=== PATIENT | male | born 1960 | race American Indian/Alaskan Native ===

== ENCOUNTER 2022-04-25 00:35 | Inpatient (IN) | payer MEDICAID ==
[2022-04-25] MEDS ORDERED: metroNIDAZOLE/NS 500 MG/100 ML 500 MG/100 ML BAG IV ONE (09:31)
[2022-04-25] MEDS ORDERED: SODIUM CHLORIDE 0.9% 1000 ML 1,000 ML IV ONE (09:31)
[2022-04-25] MEDS ORDERED: diphenhydrAMINE 50 MG/ML VIAL IV ONE (09:33)
[2022-04-25] MEDS ORDERED: ONDANSETRON 4 MG/2 ML INJ IV ONE (09:33)
[2022-04-25] MEDS ORDERED: HYDROmorphone 0.5 MG/0.5 ML INJ IV ONE (09:33)
--- NOTE | 2022-04-25 09:37 | Emergency Department Report ---
<FRANCISCOCRISSY Muñoz - Last Filed: 04/25/22 13:21> ED Abdominal Pain HPI - General Chief Complaint: Abdominal Pain Stated Complaint: ABDOMINAL PAIN/BLOATED Time Seen by Provider: 04/25/22 08:54 - Related Data Allergies Allergy/AdvReac Type Severity Reaction Status Date / Time No Known Allergies Allergy Unverified 04/25/22 02:01 ED Medical Decision Making - Lab Data Result diagrams: 04/25/22 09:15 04/25/22 09:15 ED Disposition Clinical Impression: Acute appendicitis Disposition: ADMITTED INPATIENT Condition: Stable <FANNIERebeccaLORI IBRAHIM - Last Filed: 04/25/22 14:08> ED Abdominal Pain HPI - General Source: EMS Mode of arrival: Stretcher Limitations: No Limitations - History of Present Illness Initial Comments: Mr. Treviño is a 61-year-old male that comes to the ER last night around midnight for complaints of abdominal pain and feeling bloated. Patient arrived in [facility] at 9:00 this morning rocking back and forth in pain. Complains of generalized abdominal pain and feeling of bloating. Patient reports chills. He denies known fever. His last bowel movement was yesterday. He endorses nausea and vomiting. He denies diarrhea. He denies any difficulty urinating. MD Complaint: abdominal pain -: Gradual, days(s) Location: diffuse Severity: severe Severity scale (0 -10): 8 Quality: fullness Consistency: constant Improves With: nothing Worsens With: nothing Associated Symptoms: denies other symptoms, nausea, vomiting, chills. denies: diarrhea, fever, constipation, dysuria, hematemesis, hematochezia, melena, hematuria, anorexia, syncope ED Review of Systems ROS: Stated complaint: ABDOMINAL PAIN/BLOATED Other details as noted in HPI Comment: All other systems reviewed and negative ED Past Medical Hx - Past Medical History Previous Medical History?: Yes Hx Hypertension: Yes Hx GERD: Yes Hx Psychiatric Treatment: Yes (depression, anxiety) Additional medical history: COPD - Surgical History Past Surgical History?: No - Family History Family history: no significant - Social History Smoking Status: Current Every Day Smoker Substance Use Type: None ED Physical Exam - General Limitations: No Limitations General appearance: alert, in no apparent distress - Head Head exam: Present: atraumatic, normocephalic - Eye Eye exam: Present: normal appearance - ENT ENT exam: Present: mucous membranes moist - Neck Neck exam: Present: normal inspection - Respiratory Respiratory exam: Present: normal lung sounds bilaterally. Absent: respiratory distress - Cardiovascular Cardiovascular Exam: Present: regular rate, normal rhythm. Absent: systolic murmur, diastolic murmur, rubs, gallop - GI/Abdominal GI/Abdominal exam: Present: soft, distended, tenderness, guarding, diminished bowel sounds - Rectal Rectal exam: Present: deferred - Extremities Exam Extremities exam: Present: normal inspection - Back Exam Back exam: Present: normal inspection - Neurological Exam Neurological exam: Present: alert, oriented X3 - Psychiatric Psychiatric exam: Present: normal affect, normal mood - Skin Skin exam: Present: warm, dry, intact, normal color. Absent: rash ED Course Vital Signs 04/25/22 04/25/22 01:56 11:24 Temperature 98.2 F 98.1 F Pulse Rate 90 109 H Respiratory 20 18 Rate Blood Pressure 156/92 Blood Pressure 151/90 [Left] O2 Sat by Pulse 96 100 Oximetry - Reevaluation(s) Reevaluation #1: 04/25/22 13:05 Home medications include 1. Medication for GERD patient cannot recall the name. 2. Prozac 3. Trazodone 4. Seroquel ED Medical Decision Making - Lab Data Result diagrams: 04/25/22 09:15 04/25/22 09:15 - Radiology Data Radiology results: report reviewed, image reviewed See report - Medical Decision Making Vital Signs 04/25/22 04/25/22 01:56 11:24 Temperature 98.2 F 98.1 F Pulse Rate 90 109 H Respiratory 20 18 Rate Blood Pressure 156/92 Blood Pressure 151/90 [Left] O2 Sat by Pulse 96 100 Oximetry Lab Results 04/25/22 04/25/22 04/25/22 Range/Units 09:15 09:15 11:29 WBC 26.3 H (4.5-11.0) K/mm3 RBC 4.98 (3.65-5.03) M/mm3 Hgb 15.4 H (11.8-15.2) gm/dl Hct 44.2 (35.5-45.6) % MCV 89 (84-94) fl MCH 31 (28-32) pg MCHC 35 H (32-34) % RDW 14.2 (13.2-15.2) % Plt Count 291 (140-440) K/mm3 Sodium 138 (137-145) mmol/L Potassium 4.2 (3.6-5.0) mmol/L Chloride 102.0 (98-107) mmol/L Carbon Dioxide 17 L (22-30) mmol/L Anion Gap 23 mmol/L BUN 17 (9-20) mg/dL Creatinine 1.0 (0.8-1.3) mg/dL Estimated GFR > 60 ml/min BUN/Creatinine Ratio 17 % Glucose 117 H (75-100) mg/dL Lactic Acid 1.40 (0.7-2.0) mmol/L Calcium 9.9 (8.4-10.2) mg/dL Total Bilirubin 0.70 (0.1-1.2) mg/dL Direct Bilirubin < 0.2 (0-0.2) mg/dL Indirect Bilirubin 0.5 mg/dL AST 21 (5-40) units/L ALT 22 (7-56) units/L Alkaline Phosphatase 69 (35-129) units/L Total Protein 7.8 (6.3-8.2) g/dL Albumin 4.7 (3.9-5) g/dL Albumin/Globulin Ratio 1.5 % Lipase 13 (13-60) units/L Urine Color (Yellow) Urine Turbidity (Clear) Urine pH (5.0-7.0) Ur Specific [place] (1.003-1.030) Urine Protein (Negative) mg/dL Urine Glucose (UA) (Negative) mg/dL Urine Ketones (Negative) mg/dL Urine Blood (Negative) Urine Nitrite (Negative) Urine Bilirubin (Negative) Urine Urobilinogen (<2.0) mg/dL Ur Leukocyte Esterase (Negative) Urine WBC (Auto) (0.0-6.0) /HPF Urine RBC (Auto) (0.0-6.0) /HPF U Epithel Cells (Auto) (0-13.0) /HPF Urine Mucus /HPF / Range/Units Unknown WBC (4.5-11.0) K/mm3 RBC (3.65-5.03) M/mm3 Hgb (11.8-15.2) gm/dl Hct (35.5-45.6) % MCV (84-94) fl MCH (28-32) pg MCHC (32-34) % RDW (13.2-15.2) % Plt Count (140-440) K/mm3 Sodium (137-145) mmol/L Potassium (3.6-5.0) mmol/L Chloride (98-107) mmol/L Carbon Dioxide (22-30) mmol/L Anion Gap mmol/L BUN (9-20) mg/dL Creatinine (0.8-1.3) mg/dL Estimated GFR ml/min BUN/Creatinine Ratio % Glucose (75-100) mg/dL Lactic Acid (0.7-2.0) mmol/L Calcium (8.4-10.2) mg/dL Total Bilirubin (0.1-1.2) mg/dL Direct Bilirubin (0-0.2) mg/dL Indirect Bilirubin mg/dL AST (5-40) units/L ALT (7-56) units/L Alkaline Phosphatase (35-129) units/L Total Protein (6.3-8.2) g/dL Albumin (3.9-5) g/dL Albumin/Globulin Ratio % Lipase (13-60) units/L Urine Color Yellow (Yellow) Urine Turbidity Slightly-cloudy (Clear) Urine pH 5.0 (5.0-7.0) Ur Specific [place] 1.029 (1.003-1.030) Urine Protein 30 mg/dl (Negative) mg/dL Urine Glucose (UA) Neg (Negative) mg/dL Urine Ketones 80 (Negative) mg/dL Urine Blood Neg (Negative) Urine Nitrite Neg (Negative) Urine Bilirubin Neg (Negative) Urine Urobilinogen < 2.0 (<2.0) mg/dL Ur Leukocyte Esterase Neg (Negative) Urine WBC (Auto) 1.0 (0.0-6.0) /HPF Urine RBC (Auto) 1.0 (0.0-6.0) /HPF U Epithel Cells (Auto) 1.0 (0-13.0) /HPF Urine Mucus 3+ /HPF Patient has been given normal saline/volume resuscitation per sepsis protocol. He has received IV Flagyl and cefepime. He has been given Zofran and Dilaudid for pain. Labs noted. UA noted. CT scan noted. Dr. Lopez aware of patient presentation and acute appendicitis. Dr. Dr. Lopez will call surgery and dispo patient. - Differential Diagnosis Acute abdomen rule out appendicitis, cholecystitis, nephrolithiasis, append Critical care attestation.: If time is entered above; I have spent that time in minutes in the direct care of this critically ill patient, excluding procedure time. ED Disposition Is pt being admited?: Yes Does the pt Need Aspirin: No Time of Disposition: 13:05
[2022-04-25 10:20] LABS: Hematocrit 44.2 % (35.5-45.6); Hemoglobin 15.4 gm/dl (11.8-15.2); Mean Corpuscular HGB Conc 35 % (32-34); Mean Corpuscular Volume 89 fl (84-94); Platelet Count 291 K/mm3 (140-440); Red Blood Count 4.98 M/mm3 (3.65-5.03); Red Cell Distribution Width 14.2 % (13.2-15.2)
[2022-04-25 10:32] LABS: Bilirubin,Urine NEG (Negative); Blood,Urine NEG (Negative); Color,Urine Yellow (Yellow); Urobilinogen,Urine < 2.0 mg/dL (<2.0)
[2022-04-25 10:33] LABS: Mucus,Urine 3+ /HPF
[2022-04-25 10:49] LABS: Alanine Aminotransferase 22 units/L (7-56); Albumin 4.7 g/dL (3.9-5); BUN/Creatinine Ratio 17; Blood Urea Nitrogen 17 mg/dL (9-20); Calcium 9.9 mg/dL (8.4-10.2); Hemolysis Index 17
[2022-04-25 10:51] LABS: Bilirubin,Direct < 0.2 mg/dL (0-0.2)
[2022-04-25] MEDS ORDERED: SODIUM CHLORIDE 0.9% 1000 ML IV SOLN IV ONE (11:07)
[2022-04-25] MEDS ORDERED: CEFEPIME/NS 2 GM/100 ML 2 GM/100 ML BAG IV ONE (11:07)
--- NOTE | 2022-04-25 12:19 | XRay Report ---
CHEST 2 VIEWS INDICATION / CLINICAL INFORMATION: pain. COMPARISON: None available. FINDINGS: SUPPORT DEVICES: None. HEART / MEDIASTINUM: No significant abnormality. LUNGS / PLEURA: No significant pulmonary or pleural abnormality. No pneumothorax. ADDITIONAL FINDINGS: No significant additional findings. IMPRESSION: 1. No acute findings. Signer Name: Luisito Biggs Jr, MD Signed: 04/25/2022 12:14 PM Workstation Name: [id number]
--- NOTE | 2022-04-25 12:59 | Cat Scan Report ---
CT ABDOMEN AND PELVIS WITH CONTRAST INDICATION / CLINICAL INFORMATION: abd pain/ bloating. TECHNIQUE: Axial CT images were obtained through the abdomen and pelvis after 100 cc of Omnipaque 300 IV contras t. Sagittal and coronal reformatted images. All CT scans at this location are performed using CT dose reduction for ALARA by means of automated exposure control. COMPARISON: None available. FINDINGS: LOWER CHEST: No significant abnormality. LIVER: No significant abnormality. GALLBLADDER: No significant abnormality. BILE DUCTS: No significant abnormality. PANCREAS: No significant abnormality. SPLEEN: No significant abnormality. ADRENALS: No significant abnormality. RIGHT KIDNEY and URETER: No significant abnormality. LEFT KIDNEY and URETER: No significant abnormality. STOMACH and SMALL BOWEL: No significant abnormality. COLON: No significant abnormality. Mild sigmoid diverticulosis is noted. APPENDIX: The appendix is dilated up to 1.3 cm with wall enhancement and surrounding inflammation. Mu ltiple small appendicoliths are identified near the base of the appendix. The appendix is retrocecal/ retrocolic in position. PERITONEUM: No free fluid. No free air. No fluid collection. LYMPH NODES: No significant adenopathy. AORTA and ARTERIES: No significant abnormality. IVC and VEINS: No significant abnormality. URINARY BLADDER: No significant abnormality. REPRODUCTIVE ORGANS: No significant abnormality. ADDITIONAL FINDINGS: Small umbilical hernia containing fat and small direct left inguinal hernia cont aining fat are identified. SKELETAL SYSTEM: Moderate degenerative disc disease at L4-5 with probable spinal canal narrowing. IMPRESSION: Acute appendicitis as described. No evidence for perforation at this time. Mild sigmoid diverticulosis. Small fat-containing hernias as described. Degenerative findings at L4-5. CRITICAL RESULT: Time of Discovery (DIE WELDER/CDT): 1140 hours Time of Communication (DIE WELDER/CDT): 1143 hours Licensed Practitioner Receiving Report: Dr. Lopez Read-Back Performed: Yes. Signer Name: Luisito Biggs Jr, MD Signed: 04/25/2022 12:55 PM Workstation Name: [id number]
[2022-04-25] MEDS ORDERED: HYDROmorphone 1 MG/1 ML INJ IV ONE (13:06)
--- NOTE | 2022-04-25 13:06 | Emergency Department Report ---
Blank Doc - Documentation Documentation: 61-year-old male with a past medical history of COPD and GERD presents to the hospital right lower quadrant abdominal pain x1 day. Patient was seen by midlevel provider. I received critical CT results showing positive appendicitis and went to the bedside to examine patient. Patient has right lower quadrant abdominal tenderness without rebound or guarding. He was informed of his diagnosis and need for admission and surgery. Additional Dilaudid ordered. Cefepime and Flagyl were ordered by midlevel provider. NPO. I will discuss case with general surgeon and hospitalist Dr Mello informed of admission at 1:22 case was subsequently discussed with general surgeon DR Walker
[2022-04-25] MEDS ORDERED: ACETAMINOPHEN 325 MG TAB PO PRN ×2 (13:28→18:33)
[2022-04-25] MEDS ORDERED: ONDANSETRON 4 MG/2 ML INJ IV PRN ×4 (13:28→19:49)
--- NOTE | 2022-04-25 18:32 | History and Physical Report ---
History of Present Illness Date of examination: 04/25/22 Date of admission: 04/25/22 13:28 Chief complaint: Right lower quadrant pain for 2 days History of present illness: Mr. Treviño is a 61-year-old male that comes to the ER last night around midnight for complaints of abdominal pain and feeling bloated. Patient arrived in [facility] at 9:00 this morning rocking back and forth in pain. Complains of generalized abdominal pain and feeling of bloating. Patient reports chills. He denies known fever. His last bowel movement was yesterday. He endorses nausea and vomiting. He denies diarrhea. He denies any difficulty urinating. MD Complaint: abdominal pain -: Gradual, days(s) Location: diffuse Severity: severe Severity scale (0 -10): 8 Quality: fullness Consistency: constant Improves With: nothing Worsens With: nothing Associated Symptoms: denies other symptoms, nausea, vomiting, chills. denies: d iarrhea, fever, constipation, dysuria, hematemesis, hematochezia, melena, hematuria, anorexia, syncope - Past Medical History --Previous Medical History?: Yes --Hypertension: Yes --GERD: Yes --Psychiatric Treatment: Yes (depression, anxiety) --Additional medical history: COPD - Surgical History --Past Surgical History?: No - Family History --Family history: no significant - Social History --Smoking Status: Current Every Day Smoker --Substance Use Type: None Review of Systems ROS: Stated complaint: ABDOMINAL PAIN/BLOATED Other details as noted in HPI Comment: All other systems reviewed and negative Medications and Allergies Allergies Allergy/AdvReac Type Severity Reaction Status Date / Time No Known Allergies Allergy Unverified 04/25/22 02:01 Active Meds: Active Medications Acetaminophen (Acetaminophen 325 Mg Tab) 650 mg PO Q4H PRN PRN Reason: Pain MILD(1-3)/Fever >100.5/RIDLEY Morphine Sulfate (Morphine 2 Mg/1 Ml Inj) 2 mg IV Q4H PRN PRN Reason: Pain, Moderate (4-6) Ondansetron HCl (Ondansetron 4 Mg/2 Ml Inj) 4 mg IV Q8H PRN PRN Reason: Nausea And Vomiting Sodium Chloride (Sodium Chloride 0.9% 10 Ml Flush Syringe) 10 ml IV BID JADIEL Sodium Chloride (Sodium Chloride 0.9% 10 Ml Flush Syringe) 10 ml IV PRN PRN PRN Reason: LINE FLUSH Exam - Constitutional Vitals: Temp Pulse Resp BP Pulse Ox 98.1 F 109 H 18 151/90 100 04/25/22 11:24 04/25/22 11:24 04/25/22 11:24 04/25/22 11:24 04/25/22 11:24 General appearance: Present: no acute distress, well-nourished - EENT Eyes: Present: PERRL ENT: hearing intact, clear oral mucosa - Neck Neck: Present: supple, normal ROM - Respiratory Respiratory effort: normal Respiratory: bilateral: CTA - Cardiovascular Heart rate: 78 Rhythm: regular Heart Sounds: Present: S1 & S2. Absent: rub, click - Extremities Extremities: pulses symmetrical, No edema Peripheral Pulses: within normal limits - Abdominal General gastrointestinal: Present: soft, non-tender, tender, non-distended, normal bowel sounds Localized gastrointestinal: tender: RLQ, guarding: RLQ, rebound: RLQ Male genitourinary: Present: normal - Integumentary Integumentary: Present: clear, warm, dry - Musculoskeletal Musculoskeletal: gait normal, strength equal bilaterally - Psychiatric Psychiatric: appropriate mood/affect, intact judgment & insight - Neurologic Neurologic: CNII-XII intact, moves all extremities Results - Labs CBC & Chem 7: 04/26/22 06:05 04/26/22 06:05 Labs: Laboratory Last Values WBC 26.3 K/mm3 (4.5-11.0) H 04/25/22 09:15 RBC 4.98 M/mm3 (3.65-5.03) 04/25/22 09:15 Hgb 15.4 gm/dl (11.8-15.2) H 04/25/22 09:15 Hct 44.2 % (35.5-45.6) 04/25/22 09:15 MCV 89 fl (84-94) 04/25/22 09:15 MCH 31 pg (28-32) 04/25/22 09:15 MCHC 35 % (32-34) H 04/25/22 09:15 RDW 14.2 % (13.2-15.2) 04/25/22 09:15 Plt Count 291 K/mm3 (140-440) 04/25/22 09:15 Sodium 138 mmol/L (137-145) 04/25/22 09:15 Potassium 4.2 mmol/L (3.6-5.0) 04/25/22 09:15 Chloride 102.0 mmol/L (98-107) 04/25/22 09:15 Carbon Dioxide 17 mmol/L (22-30) L 04/25/22 09:15 Anion Gap 23 mmol/L 04/25/22 09:15 BUN 17 mg/dL (9-20) 04/25/22 09:15 Creatinine 1.0 mg/dL (0.8-1.3) 04/25/22 09:15 Estimated GFR > 60 ml/min 04/25/22 09:15 BUN/Creatinine Ratio 17 % 04/25/22 09:15 Glucose 117 mg/dL (75-100) H 04/25/22 09:15 Lactic Acid 1.40 mmol/L (0.7-2.0) 04/25/22 11:29 Calcium 9.9 mg/dL (8.4-10.2) 04/25/22 09:15 Total Bilirubin 0.70 mg/dL (0.1-1.2) 04/25/22 09:15 Direct Bilirubin < 0.2 mg/dL (0-0.2) 04/25/22 09:15 Indirect Bilirubin 0.5 mg/dL 04/25/22 09:15 AST 21 units/L (5-40) 04/25/22 09:15 ALT 22 units/L (7-56) 04/25/22 09:15 Alkaline Phosphatase 69 units/L (35-129) 04/25/22 09:15 Total Protein 7.8 g/dL (6.3-8.2) 04/25/22 09:15 Albumin 4.7 g/dL (3.9-5) 04/25/22 09:15 Albumin/Globulin Ratio 1.5 % 04/25/22 09:15 Lipase 13 units/L (13-60) 04/25/22 09:15 Urine Color Yellow (Yellow) 04/25/22 Unknown Urine Turbidity Slightly-cloudy (Clear) 04/25/22 Unknown Urine pH 5.0 (5.0-7.0) 04/25/22 Unknown Ur Specific [place] 1.029 (1.003-1.030) 04/25/22 Unknown Urine Protein 30 mg/dl mg/dL (Negative) 04/25/22 Unknown Urine Glucose (UA) Neg mg/dL (Negative) 04/25/22 Unknown Urine Ketones 80 mg/dL (Negative) 04/25/22 Unknown Urine Blood Neg (Negative) 04/25/22 Unknown Urine Nitrite Neg (Negative) 04/25/22 Unknown Urine Bilirubin Neg (Negative) 04/25/22 Unknown Urine Urobilinogen < 2.0 mg/dL (<2.0) 04/25/22 Unknown Ur Leukocyte Esterase Neg (Negative) 04/25/22 Unknown Urine WBC (Auto) 1.0 /HPF (0.0-6.0) 04/25/22 Unknown Urine RBC (Auto) 1.0 /HPF (0.0-6.0) 04/25/22 Unknown U Epithel Cells (Auto) 1.0 /HPF (0-13.0) 04/25/22 Unknown Urine Mucus 3+ /HPF 04/25/22 Unknown Short CBC 04/25/22 04/26/22 Range/Units 09:15 06:05 WBC 26.3 H 18.8 H (4.5-11.0) K/mm3 Hgb 15.4 H 12.4 D (11.8-15.2) gm/dl Hct 44.2 38.4 (35.5-45.6) % Plt Count 291 217 (140-440) K/mm3 BMP 04/25/22 04/26/22 09:15 06:05 Sodium 138 139 Potassium 4.2 3.8 Chloride 102.0 104.3 Carbon Dioxide 17 L 22 BUN 17 17 Creatinine 1.0 1.1 Glucose 117 H 97 Calcium 9.9 8.5 Liver Function 04/25/22 Range/Units 09:15 Total Bilirubin 0.70 (0.1-1.2) mg/dL Direct Bilirubin < 0.2 (0-0.2) mg/dL AST 21 (5-40) units/L ALT 22 (7-56) units/L Alkaline Phosphatase 69 (35-129) units/L Albumin 4.7 (3.9-5) g/dL Urine 04/25/22 Range/Units Unknown Urine Color Yellow (Yellow) Urine pH 5.0 (5.0-7.0) Ur Specific [place] 1.029 (1.003-1.030) Urine Protein 30 mg/dl (Negative) mg/dL Urine Glucose (UA) Neg (Negative) mg/dL Microbiology: Microbiology 04/25/22 11:29 Peripheral/Venous Blood Culture - Preliminary Culture in Progress 04/25/22 11:29 Peripheral/Venous Blood Culture - Preliminary Culture in Progress - Imaging and Cardiology Imaging and Cardiology: Abdomen/pelvis CT Acute appendicitis as described No evidence of perforation at this time Mild sigmoid diverticulosis Small fat-containing hernias Degenerative findings at L4-5. Chest x-ray no acute findings. Assessment and Plan Advance Directives: Yes (Full code) VTE prophylaxis?: Chemical Plan of care discussed with patient/family: Yes - Patient Problems (1) SIRS (systemic inflammatory response syndrome) Current Visit: Yes Status: Acute Plan to address problem: Patient has elevated white count Acute appendicitis IV antibiotics and IV fluids for now (2) Acute appendicitis Current Visit: Yes Status: Acute Qualifiers: Appendicitis gangrene presence: without gangrene Appendicitis perforation presence: without perforation Plan to address problem: Patient initiated on IV Zosyn Surgery consult appreciated Patient may go to the OR this evening or tomorrow morning (3) Dehydration Current Visit: Yes Status: Acute Plan to address problem: IV fluids (4) DVT prophylaxis Current Visit: Yes Status: Acute Plan to address problem: On anticoagulation and GI prophylaxis (5) Advance care planning Current Visit: Yes Status: Acute Plan to address problem: Disease education conducted, care plan discussed, diagnosis discussed prognosis discussed. Patient acknowledges understanding with care plan. +30 minutes.
--- NOTE | 2022-04-25 18:32 | Consultation ---
History of Present Illness Consult date: 04/25/22 Reason for consult: abdominal pain - History of present illness History of present illness: Mr. Treviño is a 61-year-old male that comes to the ER last night around midnight for complaints of abdominal pain and feeling bloated. Patient arrived in [facility] at 9:00 this morning rocking back and forth in pain. Complains of generalized abdominal pain and feeling of bloating. Patient reports chills. He denies known fever. His last bowel movement was yesterday. He endorses nausea and vomiting. He denies diarrhea. He denies any difficulty urinating. CT scan of the abdomen is positive for acute of appendicitis Medications and Allergies Allergies Allergy/AdvReac Type Severity Reaction Status Date / Time No Known Allergies Allergy Unverified 04/25/22 02:01 Active Meds: Active Medications Acetaminophen (Acetaminophen 325 Mg Tab) 650 mg PO Q4H PRN PRN Reason: Pain MILD(1-3)/Fever >100.5/RIDLEY Morphine Sulfate (Morphine 2 Mg/1 Ml Inj) 2 mg IV Q4H PRN PRN Reason: Pain, Moderate (4-6) Ondansetron HCl (Ondansetron 4 Mg/2 Ml Inj) 4 mg IV Q8H PRN PRN Reason: Nausea And Vomiting Sodium Chloride (Sodium Chloride 0.9% 10 Ml Flush Syringe) 10 ml IV BID JADIEL Sodium Chloride (Sodium Chloride 0.9% 10 Ml Flush Syringe) 10 ml IV PRN PRN PRN Reason: LINE FLUSH Exam Vital Signs Temp Pulse Resp BP Pulse Ox 98.2 F 90 20 156/92 96 04/25/22 01:56 04/25/22 01:56 04/25/22 01:56 04/25/22 01:56 04/25/22 01:56 - General physical appearance Positive: well developed - Eyes Positive: PERRL - Neck Positive: no masses, no bruits, trachea midline - Respiratory Positive: normal expansion - Cardiovascular Rhythm: regular - Extremities Extremities: no ischemia, No edema - Abdomen Abdomen: Present: tender, guarding, rigid Hernia: none - Neurologic Neurologic: alert and oriented to time, place and person, motor strength and sensation are grossly intact, CN II-XII intact Results - Labs 04/25/22 09:15 04/25/22 09:15 Abnormal lab results 04/25/22 04/25/22 Range/Units 09:15 09:15 WBC 26.3 H (4.5-11.0) K/mm3 Hgb 15.4 H (11.8-15.2) gm/dl MCHC 35 H (32-34) % Carbon Dioxide 17 L (22-30) mmol/L Glucose 117 H (75-100) mg/dL Diabetes panel 04/25/22 Range/Units 09:15 Sodium 138 (137-145) mmol/L Potassium 4.2 (3.6-5.0) mmol/L Chloride 102.0 (98-107) mmol/L Carbon Dioxide 17 L (22-30) mmol/L BUN 17 (9-20) mg/dL Creatinine 1.0 (0.8-1.3) mg/dL Glucose 117 H (75-100) mg/dL Calcium 9.9 (8.4-10.2) mg/dL AST 21 (5-40) units/L ALT 22 (7-56) units/L Alkaline Phosphatase 69 (35-129) units/L Total Protein 7.8 (6.3-8.2) g/dL Albumin 4.7 (3.9-5) g/dL Calcium panel 04/25/22 Range/Units 09:15 Calcium 9.9 (8.4-10.2) mg/dL Albumin 4.7 (3.9-5) g/dL Pituitary panel 04/25/22 Range/Units 09:15 Sodium 138 (137-145) mmol/L Potassium 4.2 (3.6-5.0) mmol/L Chloride 102.0 (98-107) mmol/L Carbon Dioxide 17 L (22-30) mmol/L BUN 17 (9-20) mg/dL Creatinine 1.0 (0.8-1.3) mg/dL Glucose 117 H (75-100) mg/dL Calcium 9.9 (8.4-10.2) mg/dL Adrenal panel 04/25/22 Range/Units 09:15 Sodium 138 (137-145) mmol/L Potassium 4.2 (3.6-5.0) mmol/L Chloride 102.0 (98-107) mmol/L Carbon Dioxide 17 L (22-30) mmol/L BUN 17 (9-20) mg/dL Creatinine 1.0 (0.8-1.3) mg/dL Glucose 117 H (75-100) mg/dL Calcium 9.9 (8.4-10.2) mg/dL Total Bilirubin 0.70 (0.1-1.2) mg/dL AST 21 (5-40) units/L ALT 22 (7-56) units/L Alkaline Phosphatase 69 (35-129) units/L Total Protein 7.8 (6.3-8.2) g/dL Albumin 4.7 (3.9-5) g/dL Assessment and Plan 61-year-old male patient with about a days duration of abdominal pain that appears to started periumbilically and then become more prominent in the right hypogastric area. CT scan of the abdomen is consistent with acute cholecys titis. Admitting WBC count is 23,000. Continue n.p.o. IV fluids IV antibiotics plan to do laparoscopic appendectomy possibly this evening.
[2022-04-25] MEDS ORDERED: PROMETHAZINE 25 MG RECT SUPP PR PRN (18:33)
[2022-04-25] MEDS ORDERED: METOCLOPRAMIDE 10 MG/2 ML INJ IV PRN (18:33)
[2022-04-25 18:39] LABS: Band Neutrophils # (Manual) 0.5 K/mm3; Basophils % (Manual) 0 % (0.0-1.8); Eosinophils % (Manual) 0 % (0.0-4.3); Platelet Estimate Consistent w Auto; RBC Morphology Normal; Total Cells Counted 100
[2022-04-25] MEDS ORDERED: LIDOCAINE (1%) 10 MG/1 ML VIAL 20 ML MDV ONE (19:22)
[2022-04-25] MEDS ORDERED: BUPIVACAINE/PF (0.5%) 5 MG/1 ML 30 ML VIAL INFILTRATI ONE ×2 (19:22→21:07)
[2022-04-25] MEDS ORDERED: HYDROmorphone 0.5 MG/0.5 ML INJ IV PRN ×2 (19:49)
--- NOTE | 2022-04-25 19:51 | Anesthesia Day of Surgery ---
Anesthesia Day of Surgery - Day of Surgery Patient Examined: Yes Patient H&P Reviewed: Yes Patient is NPO: Yes
--- NOTE | 2022-04-25 19:53 | Anesthesia Consultation ---
Anesthesia Consult and Med Hx Date of service: 04/25/22 - Airway Anesthetic Teeth Evaluation: Edentulous ROM Head & Neck: Adequate Mental/Hyoid Distance: Adequate Mallampati Class: Class II Intubation Access Assessment: Good - Pre-Operative Health Status ASA Pre-Surgery Classification: ASA3, Emergency Proposed Anesthetic Plan: General - Pulmonary Hx Smoking: Yes Hx Respiratory Symptoms: Yes SOB: Yes COPD: Yes Hx Sleep Apnea: No - Cardiovascular System Hx Hypertension: Yes - Central Nervous System Hx Psychiatric Problems: Yes (Anxiety/Depression) - Gastrointestinal Hx Gastroesophageal Reflux Disease: Yes - Other Systems Hx Obesity: No
[2022-04-25] MEDS ORDERED: LIDOCAINE MPF (2%) 20 MG/1 ML VIAL 5 ML ONE (19:54)
[2022-04-25] MEDS ORDERED: ROCURONIUM 50 MG/5 ML INJ IV ONE ×2 (19:54→21:26)
[2022-04-25] MEDS ORDERED: fentaNYL 100 MCG/2 ML INJ ONE ×2 (19:55→20:58)
[2022-04-25] MEDS ORDERED: propofoL 200 MG/20 ML VIAL IV ONE (19:55)
[2022-04-25] MEDS ORDERED: MIDAZOLAM 2 MG/2 ML INJ ONE (19:55)
[2022-04-25] MEDS ORDERED: SODIUM CHLORIDE 0.9% IRR 1,000 ML BOTTLE IR ONE (21:07)
[2022-04-25] MEDS ORDERED: LIDOCAINE (1%) 10 MG/1 ML VIAL 20 ML MDV INFILTRATI ONE (21:07)
[2022-04-25] MEDS ORDERED: LACTATED RINGERS 1,000 ML ONE ×2 (21:26→21:38)
[2022-04-25] MEDS ORDERED: SODIUM CHLORIDE 0.9% IRRIG SOLN 2000 ML IR ONE (21:28)
[2022-04-25] MEDS ORDERED: SUGAMMADEX SODIUM 200 MG/2 ML VIAL IV ONE (21:31)
--- NOTE | 2022-04-25 21:54 | Operative Report ---
Operative Report Operative Report: Procedure date: 04/25/2022 Preop diagnosis: Acute appendicitis Postop diagnosis: Same Procedure: Laparoscopic appendectomy Surgeon: Dr. Bonner Anesthesia: General endotracheal Estimated blood loss: 50 cc Specimen: Appendix Findings: This patient presents with a acute appendicitis diagnosed on CAT scan. He is taken to the OR and under general endotracheal anesthesia timeouts and consents are obtained. An Sotelo catheter is placed. Abdomen is prepped with ChloraPrep and 3 minutes later draped in a sterile fashion. A 2 mm incision is made in the left upper quadrant and Veress needle was used to gain access peritoneal cavity. Abdomen is insufflated with CO2. 5 George port is placed in the right upper quadrant and in the low midline. A 10 mm port is placed supraumbilically. The appendix is identified in the right lower quadrant and grasped with graspers. The endoscopic ADRIANA stapler is used to separate the appendix from the base of the cecum. Harmonic scalpel was used to divide the mesoappendix. Specimen is then placed in a specimen bag and extracted through the 10 mm port. The fascial defect is then closed with a John Rose system and a 2-0 Vicryl stitch. Skin is then closed with marty.
[2022-04-25] MEDS ORDERED: ENOXAPARIN 30 MG/0.3 ML INJ SUB-Q ONE (21:59)
--- NOTE | 2022-04-25 22:17 | Post Anesthesia Evaluation ---
- Post Anesthesia Evaluation Patient Participated: Yes Airway Patent: Yes Stable Respiratory Function: Yes Nausea/Vomiting: No Temp > 96.8F: Yes Pain Manageable: Yes Adequeate Hydration: Yes Anesthesia Complications: No Block Receding Appropriately: Not Applicable Patient on Ventilator: No
[2022-04-26] MEDS: FAMOTIDINE 20 MG/2 ML INJ IV SCH ×3 (00:09→22:54)
[2022-04-26] MEDS: PIPERACIL/TAZOBACTA 4.5/NS 100 4.5 GM/100 ML VIAL IV SCH ×3 (00:09→16:17)
[2022-04-26] MEDS: MORPHINE 2 MG/1 ML INJ IV PRN ×4 (06:45→20:07)
[2022-04-26 06:46] LABS: Basophils % (Auto) 0.1 % (0.0-1.8); Eosinophils % (Auto) 0.1 % (0.0-4.3); Hematocrit 38.4 % (35.5-45.6); Hemoglobin 12.4 gm/dl (11.8-15.2); Lymphocytes # (Auto) 1.6 K/mm3 (1.2-5.4); Lymphocytes % (Auto) 8.5 % (13.4-35.0); Mean Corpuscular HGB Conc 32 % (32-34); Mean Corpuscular Volume 91 fl (84-94); Monocytes % (Auto) 10.7 % (0.0-7.3); Platelet Count 217 K/mm3 (140-440); Red Blood Count 4.21 M/mm3 (3.65-5.03); Red Cell Distribution Width 14.2 % (13.2-15.2)
[2022-04-26] MEDS: SODIUM CHLORIDE 0.9% 1000 ML 1,000 ML IV SCH ×2 (06:46→20:12)
[2022-04-26 06:57] LABS: BUN/Creatinine Ratio 15; Blood Urea Nitrogen 17 mg/dL (9-20); Calcium 8.5 mg/dL (8.4-10.2); Hemolysis Index 5
--- NOTE | 2022-04-26 08:30 | Progress Note ---
Assessment and Plan 61-year-old male patient with about a days duration of abdominal pain that appears to started periumbilically and then become more prominent in the right hypogastric area. CT scan of the abdomen is consistent with acute cholecystitis. Admitting WBC count is 23,000. Patient status post laparoscopic appendectomy on 04/25/2022. He feels well notes some abdominal wall pain. He is hungry today. His white count is 18,000. We will advance to a soft diet today and continue IV antibiotics repeat CBC in the morning. Subjective Date of service: 04/26/22 Patient Reports: Positive: no new complaints, feels better Narrative: Patient status post laparoscopic appendectomy on 04/25/2022. He feels well notes some abdominal wall pain. He is hungry today. His white count is 18,000. We will advance to a soft diet today and continue IV antibiotics repeat CBC in the morning. Objective Vital Signs - 12hr 04/25/22 04/25/22 04/25/22 21:56 22:01 22:06 Temperature 100.0 F H Pulse Rate 122 H 123 H 116 H Pulse Rate [ Apical] Respiratory 24 21 22 Rate Blood Pressure 142/84 152/89 161/88 O2 Sat by Pulse 100 100 100 Oximetry 04/25/22 04/25/22 04/25/22 22:15 22:30 22:34 Temperature Pulse Rate 109 H 112 H 110 H Pulse Rate [ Apical] Respiratory 24 25 H Rate Blood Pressure 157/83 146/73 146/73 O2 Sat by Pulse 100 98 Oximetry 04/25/22 04/25/22 04/25/22 22:45 22:55 22:58 Temperature 98.6 F Pulse Rate 108 H 104 H Pulse Rate [ 104 H Apical] Respiratory 22 18 18 Rate Blood Pressure 138/80 146/90 O2 Sat by Pulse 97 96 96 Oximetry 04/25/22 04/26/22 23:00 04:27 Temperature 99.0 F Pulse Rate 104 H 95 H Pulse Rate [ Apical] Respiratory 19 18 Rate Blood Pressure 146/90 139/89 O2 Sat by Pulse 97 95 Oximetry - Labs 04/26/22 06:05 04/26/22 06:05 Diabetes panel 04/25/22 04/26/22 Range/Units 09:15 06:05 Sodium 138 139 (137-145) mmol/L Potassium 4.2 3.8 (3.6-5.0) mmol/L Chloride 102.0 104.3 (98-107) mmol/L Carbon Dioxide 17 L 22 (22-30) mmol/L BUN 17 17 (9-20) mg/dL Creatinine 1.0 1.1 (0.8-1.3) mg/dL Glucose 117 H 97 (75-100) mg/dL Calcium 9.9 8.5 (8.4-10.2) mg/dL AST 21 (5-40) units/L ALT 22 (7-56) units/L Alkaline Phosphatase 69 (35-129) units/L Total Protein 7.8 (6.3-8.2) g/dL Albumin 4.7 (3.9-5) g/dL Calcium panel 04/25/22 04/26/22 Range/Units 09:15 06:05 Calcium 9.9 8.5 (8.4-10.2) mg/dL Albumin 4.7 (3.9-5) g/dL Pituitary panel 04/25/22 04/26/22 Range/Units 09:15 06:05 Sodium 138 139 (137-145) mmol/L Potassium 4.2 3.8 (3.6-5.0) mmol/L Chloride 102.0 104.3 (98-107) mmol/L Carbon Dioxide 17 L 22 (22-30) mmol/L BUN 17 17 (9-20) mg/dL Creatinine 1.0 1.1 (0.8-1.3) mg/dL Glucose 117 H 97 (75-100) mg/dL Calcium 9.9 8.5 (8.4-10.2) mg/dL Adrenal panel 04/25/22 04/26/22 Range/Units 09:15 06:05 Sodium 138 139 (137-145) mmol/L Potassium 4.2 3.8 (3.6-5.0) mmol/L Chloride 102.0 104.3 (98-107) mmol/L Carbon Dioxide 17 L 22 (22-30) mmol/L BUN 17 17 (9-20) mg/dL Creatinine 1.0 1.1 (0.8-1.3) mg/dL Glucose 117 H 97 (75-100) mg/dL Calcium 9.9 8.5 (8.4-10.2) mg/dL Total Bilirubin 0.70 (0.1-1.2) mg/dL AST 21 (5-40) units/L ALT 22 (7-56) units/L Alkaline Phosphatase 69 (35-129) units/L Total Protein 7.8 (6.3-8.2) g/dL Albumin 4.7 (3.9-5) g/dL
--- NOTE | 2022-04-26 20:38 | Progress Note ---
Assessment and Plan Assessment and plan: --SIRS (systemic inflammatory response syndrome) Patient has elevated white count Acute appendicitis IV antibiotics and IV fluids for now --Acute appendicitis S/p lap appendectomy Patient tolerated the procedure well Initially on clear liquids Now advance the diet to GI soft diet Continue postop care Surgery following Patient initiated on IV Zosyn Surgery consult appreciated Patient may go to the OR this evening or tomorrow morning --Leukocytosis; Secondary to acute appendicitis Trending down -Dehydration IV fluids, closely monitor --DVT prophylaxis On anticoagulation and GI prophylaxis -- Advance care planning Disease education conducted, care plan discussed, diagnosis discussed prognosis discussed. Patient acknowledges understanding with care plan. +30 minutes. Discussed with surgeon Dr. Robison, continue current management Possible discharge home tomorrow if stable and tolerates diet Plan of care reviewed with the patient and his nurse History Interval history: Acute appendicitis; Status post laparoscopic appendectomy Patient tolerated the procedure well Surgery following, advance the diet to GI soft diet today .Patient complains of some pain at the surgical site Denies nausea vomiting Vital signs noted Hospitalist Physical - Constitutional Vitals: Temp Pulse Resp BP Pulse Ox 98.1 F 89 16 140/94 97 04/26/22 16:05 04/26/22 16:05 04/26/22 16:05 04/26/22 16:05 04/26/22 16:05 General appearance: Present: no acute distress, well-nourished - EENT Eyes: Present: PERRL, EOM intact - Neck Neck: Present: supple, normal ROM - Respiratory Respiratory effort: normal Respiratory: bilateral: diminished, wheezing, negative: rales, rhonchi - Cardiovascular Rhythm: regular Heart Sounds: Present: S1 & S2 - Extremities Extremities: no ischemia, No edema Peripheral Pulses: within normal limits - Abdominal General gastrointestinal: soft, tender (No guarding no rigidity), non-distended, normal bowel sounds - Integumentary Integumentary: Present: clear, warm - Psychiatric Psychiatric: appropriate mood/affect, other - Neurologic Neurologic: moves all extremities Results - Labs CBC & Chem 7: 04/26/22 06:05 04/26/22 06:05 Labs: Laboratory Last Values WBC 18.8 K/mm3 (4.5-11.0) H 04/26/22 06:05 RBC 4.21 M/mm3 (3.65-5.03) 04/26/22 06:05 Hgb 12.4 gm/dl (11.8-15.2) D 04/26/22 06:05 Hct 38.4 % (35.5-45.6) 04/26/22 06:05 MCV 91 fl (84-94) 04/26/22 06:05 MCH 29 pg (28-32) 04/26/22 06:05 MCHC 32 % (32-34) 04/26/22 06:05 RDW 14.2 % (13.2-15.2) 04/26/22 06:05 Plt Count 217 K/mm3 (140-440) 04/26/22 06:05 Lymph % (Auto) 8.5 % (13.4-35.0) L 04/26/22 06:05 [place] % (Auto) 10.7 % (0.0-7.3) H 04/26/22 06:05 Eos % (Auto) 0.1 % (0.0-4.3) 04/26/22 06:05 Baso % (Auto) 0.1 % (0.0-1.8) 04/26/22 06:05 Lymph # (Auto) 1.6 K/mm3 (1.2-5.4) 04/26/22 06:05 [place] # (Auto) 2.0 K/mm3 (0.0-0.8) H 04/26/22 06:05 Eos # (Auto) 0.0 K/mm3 (0.0-0.4) 04/26/22 06:05 Baso # (Auto) 0.0 K/mm3 (0.0-0.1) 04/26/22 06:05 Add Manual Diff Complete 04/25/22 09:15 Total Counted 100 04/25/22 09:15 Seg Neutrophils % 80.6 % (40.0-70.0) H 04/26/22 06:05 Seg Neuts % (Manual) 85.0 % (40.0-70.0) H 04/25/22 09:15 Band Neutrophils % 2.0 % 04/25/22 09:15 Lymphocytes % (Manual) 4.0 % (13.4-35.0) L 04/25/22 09:15 Reactive Lymphs % (Man) 0 % 04/25/22 09:15 Monocytes % (Manual) 9.0 % (0.0-7.3) H 04/25/22 09:15 Eosinophils % (Manual) 0 % (0.0-4.3) 04/25/22 09:15 Basophils % (Manual) 0 % (0.0-1.8) 04/25/22 09:15 Metamyelocytes % 0 % 04/25/22 09:15 Myelocytes % 0 % 04/25/22 09:15 Promyelocytes % 0 % 04/25/22 09:15 Blast Cells % 0 % 04/25/22 09:15 Nucleated RBC % Not Reportable 04/25/22 09:15 Seg Neutrophils # 15.1 K/mm3 (1.8-7.7) H 04/26/22 06:05 Seg Neutrophils # Man 22.4 K/mm3 (1.8-7.7) H 04/25/22 09:15 Band Neutrophils # 0.5 K/mm3 04/25/22 09:15 Lymphocytes # (Manual) 1.1 K/mm3 (1.2-5.4) L 04/25/22 09:15 Abs React Lymphs (Man) 0.0 K/mm3 04/25/22 09:15 Monocytes # (Manual) 2.4 K/mm3 (0.0-0.8) H 04/25/22 09:15 Eosinophils # (Manual) 0.0 K/mm3 (0.0-0.4) 04/25/22 09:15 Basophils # (Manual) 0.0 K/mm3 (0.0-0.1) 04/25/22 09:15 Metamyelocytes # 0.0 K/mm3 04/25/22 09:15 Myelocytes # 0.0 K/mm3 04/25/22 09:15 Promyelocytes # 0.0 K/mm3 04/25/22 09:15 Blast Cells # 0.0 K/mm3 04/25/22 09:15 WBC Morphology Not Reportable 04/25/22 09:15 Hypersegmented Neuts Not Reportable 04/25/22 09:15 Hyposegmented Neuts Not Reportable 04/25/22 09:15 Hypogranular Neuts Not Reportable 04/25/22 09:15 Smudge Cells Not Reportable 04/25/22 09:15 Toxic Granulation Not Reportable 04/25/22 09:15 Toxic Vacuolation Not Reportable 04/25/22 09:15 Dohle Bodies Not Reportable 04/25/22 09:15 Pelger-Huet Anomaly Not Reportable 04/25/22 09:15 Jose Luis Rods Not Reportable 04/25/22 09:15 Platelet Estimate Consistent w auto 04/25/22 09:15 Clumped Platelets Not Reportable 04/25/22 09:15 Plt Clumps, EDTA Not Reportable 04/25/22 09:15 Large Platelets Not Reportable 04/25/22 09:15 Giant Platelets Not Reportable 04/25/22 09:15 Platelet Satelliting Not Reportable 04/25/22 09:15 Plt Morphology Comment Not Reportable 04/25/22 09:15 RBC Morphology Normal 04/25/22 09:15 Dimorphic RBCs Not Reportable 04/25/22 09:15 Polychromasia Not Reportable 04/25/22 09:15 Hypochromasia Not Reportable 04/25/22 09:15 Poikilocytosis Not Reportable 04/25/22 09:15 Anisocytosis Not Reportable 04/25/22 09:15 Microcytosis Not Reportable 04/25/22 09:15 Macrocytosis Not Reportable 04/25/22 09:15 Spherocytes Not Reportable 04/25/22 09:15 Pappenheimer Bodies Not Reportable 04/25/22 09:15 Sickle Cells Not Reportable 04/25/22 09:15 Target Cells Not Reportable 04/25/22 09:15 Tear Drop Cells Not Reportable 04/25/22 09:15 Ovalocytes Not Reportable 04/25/22 09:15 Helmet Cells Not Reportable 04/25/22 09:15 Harris-Shonto Bodies Not Reportable 04/25/22 09:15 [place] Rings Not Reportable 04/25/22 09:15 Elizabeth Cells Not Reportable 04/25/22 09:15 Bite Cells Not Reportable 04/25/22 09:15 Crenated Cell Not Reportable 04/25/22 09:15 Elliptocytes Not Reportable 04/25/22 09:15 Acanthocytes (Spur) Not Reportable 04/25/22 09:15 Rouleaux Not Reportable 04/25/22 09:15 Hemoglobin C Crystals Not Reportable 04/25/22 09:15 Schistocytes Not Reportable 04/25/22 09:15 Malaria parasites Not Reportable 04/25/22 09:15 Demarco Bodies Not Reportable 04/25/22 09:15 Hem Pathologist Commnt No 04/25/22 09:15 Sodium 139 mmol/L (137-145) 04/26/22 06:05 Potassium 3.8 mmol/L (3.6-5.0) 04/26/22 06:05 Chloride 104.3 mmol/L (98-107) 04/26/22 06:05 Carbon Dioxide 22 mmol/L (22-30) 04/26/22 06:05 Anion Gap 17 mmol/L 04/26/22 06:05 BUN 17 mg/dL (9-20) 04/26/22 06:05 Creatinine 1.1 mg/dL (0.8-1.3) 04/26/22 06:05 Estimated GFR > 60 ml/min 04/26/22 06:05 BUN/Creatinine Ratio 15 % 04/26/22 06:05 Glucose 97 mg/dL (75-100) 04/26/22 06:05 Lactic Acid 1.40 mmol/L (0.7-2.0) 04/25/22 11:29 Calcium 8.5 mg/dL (8.4-10.2) 04/26/22 06:05 Total Bilirubin 0.70 mg/dL (0.1-1.2) 04/25/22 09:15 Direct Bilirubin < 0.2 mg/dL (0-0.2) 04/25/22 09:15 Indirect Bilirubin 0.5 mg/dL 04/25/22 09:15 AST 21 units/L (5-40) 04/25/22 09:15 ALT 22 units/L (7-56) 04/25/22 09:15 Alkaline Phosphatase 69 units/L (35-129) 04/25/22 09:15 Total Protein 7.8 g/dL (6.3-8.2) 04/25/22 09:15 Albumin 4.7 g/dL (3.9-5) 04/25/22 09:15 Albumin/Globulin Ratio 1.5 % 04/25/22 09:15 Lipase 13 units/L (13-60) 04/25/22 09:15 Urine Color Yellow (Yellow) 04/25/22 Unknown Urine Turbidity Slightly-cloudy (Clear) 04/25/22 Unknown Urine pH 5.0 (5.0-7.0) 04/25/22 Unknown Ur Specific [place] 1.029 (1.003-1.030) 04/25/22 Unknown Urine Protein 30 mg/dl mg/dL (Negative) 04/25/22 Unknown Urine Glucose (UA) Neg mg/dL (Negative) 04/25/22 Unknown Urine Ketones 80 mg/dL (Negative) 04/25/22 Unknown Urine Blood Neg (Negative) 04/25/22 Unknown Urine Nitrite Neg (Negative) 04/25/22 Unknown Urine Bilirubin Neg (Negative) 04/25/22 Unknown Urine Urobilinogen < 2.0 mg/dL (<2.0) 04/25/22 Unknown Ur Leukocyte Esterase Neg (Negative) 04/25/22 Unknown Urine WBC (Auto) 1.0 /HPF (0.0-6.0) 04/25/22 Unknown Urine RBC (Auto) 1.0 /HPF (0.0-6.0) 04/25/22 Unknown U Epithel Cells (Auto) 1.0 /HPF (0-13.0) 04/25/22 Unknown Urine Mucus 3+ /HPF 04/25/22 Unknown Microbiology: Microbiology 04/25/22 11:29 Peripheral/Venous Blood Culture - Preliminary NO GROWTH AFTER 24 HOURS 04/25/22 11:29 Peripheral/Venous Blood Culture - Preliminary NO GROWTH AFTER 24 HOURS Sotelo/IV: Voiding Method Toilet Active Medications - Current Medications Current Medications: Generic Name Dose Route Start Last Admin Trade Name Otisq PRN Reason Stop Dose Admin Acetaminophen 650 mg 04/25/22 18:33 Acetaminophen 325 Mg Tab PO Q4H PRN Pain MILD(1-3)/Fever >100.5/RIDLEY Famotidine 20 mg 04/25/22 22:00 04/26/22 09:32 Famotidine 20 Mg/2 Ml Inj IV 20 mg BID JADIEL Administration Piperacillin Sod/Tazobactam Sod 4.5 gm in 100 mls @ 200 mls/hr 04/25/22 20:00 04/26/22 16:17 Zosyn/Ns 4.5gm/100ml IV 200 mls/hr Q8H JADIEL Administration Protocol Sodium Chloride 1,000 mls @ 75 mls/hr 04/25/22 18:45 04/26/22 20:12 Nacl 0.9% 1000 Ml IV 75 mls/hr DIRECT JADIEL Administration Metoclopramide HCl 10 mg 04/25/22 18:33 Metoclopramide 10 Mg/2 Ml Inj IV Q6H PRN Nausea And Vomiting Morphine Sulfate 2 mg 04/25/22 13:28 04/26/22 20:07 Morphine 2 Mg/1 Ml Inj IV 2 mg Q4H PRN Administration Pain, Moderate (4-6) Ondansetron HCl 4 mg 04/25/22 18:36 Ondansetron 4 Mg/2 Ml Inj IV Q3H PRN Nausea And Vomiting Promethazine HCl 25 mg 04/25/22 18:33 Promethazine 25 Mg Rect Supp NV Q6H PRN N/V IF NPO AND NO IV ACCESS Sodium Chloride 10 ml 04/25/22 22:00 04/26/22 09:31 Sodium Chloride 0.9% 10 Ml Flush Syringe IV 10 ml BID JADIEL Administration Sodium Chloride 10 ml 04/25/22 18:33 Sodium Chloride 0.9% 10 Ml Flush Syringe IV PRN PRN LINE FLUSH
[2022-04-27] MEDS: MORPHINE 2 MG/1 ML INJ IV PRN ×3 (00:08→08:22)
[2022-04-27] MEDS: PIPERACIL/TAZOBACTA 4.5/NS 100 4.5 GM/100 ML VIAL IV SCH ×4 (00:12→23:50)
[2022-04-27 06:32] LABS: Basophils % (Auto) 0.2 % (0.0-1.8); Eosinophils # (Auto) 0.2 K/mm3 (0.0-0.4); Eosinophils % (Auto) 1.5 % (0.0-4.3); Hematocrit 37.7 % (35.5-45.6); Hemoglobin 12.4 gm/dl (11.8-15.2); Lymphocytes # (Auto) 1.3 K/mm3 (1.2-5.4); Lymphocytes % (Auto) 11.1 % (13.4-35.0); Mean Corpuscular HGB Conc 33 % (32-34); Mean Corpuscular Volume 92 fl (84-94); Monocytes # (Auto) 1.5 K/mm3 (0.0-0.8); Monocytes % (Auto) 13.2 % (0.0-7.3); Platelet Count 190 K/mm3 (140-440); Red Blood Count 4.12 M/mm3 (3.65-5.03); Red Cell Distribution Width 14.3 % (13.2-15.2)
--- NOTE | 2022-04-27 07:51 | Progress Note ---
Assessment and Plan 61-year-old male patient with about a days duration of abdominal pain that appears to started periumbilically and then become more prominent in the right hypogastric area. CT scan of the abdomen is consistent with acute cholecystitis. Admitting WBC count is 23,000. Postop day #2 status post appendectomy. White count now decreased to 11,600. Tolerating soft diet. Okay to discharge patient today. Subjective Date of service: 04/27/22 Patient Reports: Positive: no new complaints, feels better Narrative: Postop day #2 status post appendectomy. White count now decreased to 11,600. Tolerating soft diet. Okay to discharge patient today. Objective Vital Signs - 12hr 04/26/22 04/26/22 04/27/22 21:53 22:00 04:03 Temperature 99.0 F 97.7 F Pulse Rate 92 H 97 H Respiratory 20 17 18 Rate Blood Pressure 146/86 167/106 O2 Sat by Pulse 98 97 99 Oximetry - Labs 04/27/22 05:39 04/26/22 06:05
--- NOTE | 2022-04-27 09:33 | Discharge Summary ---
Providers - Providers Date of Admission: 04/25/22 13:28 Date of discharge: 04/27/22 Attending physician: MCKINLEY PAREKH 04/25/22 13:22 Consult to Physician [CONS] Urgent Comment: Consulting Provider: MEI CROSS Physician Instructions: Reason For Exam: acute appendicitis Primary care physician: HARRIET MICHAEL Hospitalization Condition: Stable Pertinent studies: CT abdomen; acute appendicitis, no evidence of perforation at this time, mild sigmoid diverticulosis, small fat-containing hernias as described, degenerative changes at L4-L5 Procedures: Status post lap appendectomy Hospital course: --Sepsis secondary to acute appendicitis/present on admission Patient has elevated white count, tachycardia And acute appendicitis s/p lap appendectomy --Acute appendicitis S/p lap appendectomy Patient tolerated the procedure well Initially on clear liquids Now advance the diet to GI soft diet Continue postop care, Surgery following Patient initiated on IV Zosyn Surgery consult appreciated Patient may go to the OR this evening or tomorrow morning --Leukocytosis; Secondary to acute appendicitis Trending down --Dehydration IV fluids, closely monitor --Mild hypotension; --Obesity; BMI 31.3 Advised diet modification exercise as tolerated and weight reduction when you are stable --DVT prophylaxis On anticoagulation and GI prophylaxis Patient is stable at discharge Disposition: 01 HOME / SELF CARE / HOMELESS Final Discharge Diagnosis (Prints w/discharge instructions): Sepsis secondary to acute appendicitis. Acute appendicitis s/p lap appendectomy. Leukocytosis improved. Dehydration resolved. Mild hypertension. Obesity BMI 31.3 Time spent for discharge: 35 Core Measure Documentation - Palliative Care Palliative Care/ Comfort Measures: Not Applicable - Core Measures Any of the following diagnoses?: none Exam - Constitutional Vitals: Temp Pulse Resp BP Pulse Ox 97.7 F 97 H 18 167/106 96 04/27/22 04:03 04/27/22 04:03 04/27/22 04:03 04/27/22 04:03 04/27/22 08:52 General appearance: Present: no acute distress, well-nourished - EENT Eyes: Present: PERRL, EOM intact - Neck Neck: Present: supple, normal ROM - Respiratory Respiratory effort: normal Respiratory: bilateral: diminished, negative: rales, rhonchi, wheezing - Cardiovascular Rhythm: regular Heart Sounds: Present: S1 & S2 - Extremities Extremities: no ischemia, No edema - Abdominal General gastrointestinal: Present: soft, non-tender, non-distended, normal bowel sounds - Integumentary Integumentary: Present: clear, warm - Musculoskeletal Musculoskeletal: strength equal bilaterally - Psychiatric Psychiatric: appropriate mood/affect, cooperative - Neurologic Neurologic: CNII-XII intact, moves all extremities Plan Activity: no restrictions Diet: other (Mechanical soft diet, advance as tolerated) Additional Instructions: Follow-up primary care physician in [address] Ha Neil in 1 week [video tele conference visit] Follow up with: HARRIET MICHAEL MD [Primary Care Provider] - 3-5 Days MEI CROSS MD [Staff Physician] - 7 Days Prescriptions: hydrALAZINE [Apresoline TAB] 10 mg PO BID #60 Famotidine [Pepcid] 20 mg PO BID #20 tablet oxyCODONE /ACETAMINOPHEN [Percocet 5/325] 1 tab PO Q6HR PRN #12 tablet PRN Reason: Pain
[2022-04-27] MEDS: FAMOTIDINE 20 MG/2 ML INJ IV SCH ×2 (09:49→23:26)
[2022-04-27] MEDS: oxyCODONE /ACETAMINOPHEN 5-325MG TAB PO PRN ×3 (12:26→23:49)
[2022-04-27] MEDS: SODIUM CHLORIDE 0.9% 1000 ML 1,000 ML IV SCH (17:58)
--- NOTE | 2022-04-27 19:13 | Progress Note ---
Assessment and Plan Assessment and plan: --SIRS (systemic inflammatory response syndrome) Patient has elevated white count Acute appendicitis IV antibiotics and IV fluids for now --Acute appendicitis S/p lap appendectomy Patient tolerated the procedure well Initially on clear liquids Now advance the diet to GI soft diet Continue postop care Surgery following Patient initiated on IV Zosyn Surgery consult appreciated Patient may go to the OR this evening or tomorrow morning --Leukocytosis; Secondary to acute appendicitis Trending down -Dehydration IV fluids, closely monitor --DVT prophylaxis On anticoagulation and GI prophylaxis -- Advance care planning Disease education conducted, care plan discussed, diagnosis discussed prognosis discussed. Patient acknowledges understanding with care plan. +30 minutes. Discussed with surgeon Dr. Robison, continue current management Possible discharge home tomorrow if stable and tolerates diet Plan of care reviewed with the patient and his nurse 04/27; patient is tolerating mechanical soft diet However has some abdominal pain seeking pain medications Surgeon recommended to observe overnight Possible discharge tomorrow morning if stable History Interval history: Seen and examined the patient at the bedside Patient's chart and medications reviewed Patient feels slightly better Surgeon cleared for discharge and follow-up with him in 1 week However later the surgeon decided to give the patient 1 more night as he was having some pain And asking for more pain medications Vital signs noted Hospitalist Physical - Constitutional Vitals: Temp Pulse Resp BP Pulse Ox 97.7 F 97 H 18 167/106 96 04/27/22 04:03 04/27/22 04:03 04/27/22 04:03 04/27/22 04:03 04/27/22 08:52 General appearance: Present: no acute distress, well-nourished - EENT Eyes: Present: PERRL, EOM intact - Neck Neck: Present: supple, normal ROM - Respiratory Respiratory effort: normal Respiratory: bilateral: diminished, negative: rales, rhonchi, wheezing - Cardiovascular Rhythm: regular Heart Sounds: Present: S1 & S2 - Extremities Extremities: no ischemia, No edema - Abdominal General gastrointestinal: soft, non-tender, non-distended, normal bowel sounds - Integumentary Integumentary: Present: clear, warm - Psychiatric Psychiatric: appropriate mood/affect, cooperative - Neurologic Neurologic: moves all extremities Results - Labs CBC & Chem 7: 04/27/22 05:39 04/26/22 06:05 Labs: Laboratory Last Values WBC 11.6 K/mm3 (4.5-11.0) H 04/27/22 05:39 RBC 4.12 M/mm3 (3.65-5.03) 04/27/22 05:39 Hgb 12.4 gm/dl (11.8-15.2) 04/27/22 05:39 Hct 37.7 % (35.5-45.6) 04/27/22 05:39 MCV 92 fl (84-94) 04/27/22 05:39 MCH 30 pg (28-32) 04/27/22 05:39 MCHC 33 % (32-34) 04/27/22 05:39 RDW 14.3 % (13.2-15.2) 04/27/22 05:39 Plt Count 190 K/mm3 (140-440) 04/27/22 05:39 Lymph % (Auto) 11.1 % (13.4-35.0) L 04/27/22 05:39 [place] % (Auto) 13.2 % (0.0-7.3) H 04/27/22 05:39 Eos % (Auto) 1.5 % (0.0-4.3) 04/27/22 05:39 Baso % (Auto) 0.2 % (0.0-1.8) 04/27/22 05:39 Lymph # (Auto) 1.3 K/mm3 (1.2-5.4) 04/27/22 05:39 [place] # (Auto) 1.5 K/mm3 (0.0-0.8) H 04/27/22 05:39 Eos # (Auto) 0.2 K/mm3 (0.0-0.4) 04/27/22 05:39 Baso # (Auto) 0.0 K/mm3 (0.0-0.1) 04/27/22 05:39 Add Manual Diff Complete 04/25/22 09:15 Total Counted 100 04/25/22 09:15 Seg Neutrophils % 74.0 % (40.0-70.0) H 04/27/22 05:39 Seg Neuts % (Manual) 85.0 % (40.0-70.0) H 04/25/22 09:15 Band Neutrophils % 2.0 % 04/25/22 09:15 Lymphocytes % (Manual) 4.0 % (13.4-35.0) L 04/25/22 09:15 Reactive Lymphs % (Man) 0 % 04/25/22 09:15 Monocytes % (Manual) 9.0 % (0.0-7.3) H 04/25/22 09:15 Eosinophils % (Manual) 0 % (0.0-4.3) 04/25/22 09:15 Basophils % (Manual) 0 % (0.0-1.8) 04/25/22 09:15 Metamyelocytes % 0 % 04/25/22 09:15 Myelocytes % 0 % 04/25/22 09:15 Promyelocytes % 0 % 04/25/22 09:15 Blast Cells % 0 % 04/25/22 09:15 Nucleated RBC % Not Reportable 04/25/22 09:15 Seg Neutrophils # 8.6 K/mm3 (1.8-7.7) H 04/27/22 05:39 Seg Neutrophils # Man 22.4 K/mm3 (1.8-7.7) H 04/25/22 09:15 Band Neutrophils # 0.5 K/mm3 04/25/22 09:15 Lymphocytes # (Manual) 1.1 K/mm3 (1.2-5.4) L 04/25/22 09:15 Abs React Lymphs (Man) 0.0 K/mm3 04/25/22 09:15 Monocytes # (Manual) 2.4 K/mm3 (0.0-0.8) H 04/25/22 09:15 Eosinophils # (Manual) 0.0 K/mm3 (0.0-0.4) 04/25/22 09:15 Basophils # (Manual) 0.0 K/mm3 (0.0-0.1) 04/25/22 09:15 Metamyelocytes # 0.0 K/mm3 04/25/22 09:15 Myelocytes # 0.0 K/mm3 04/25/22 09:15 Promyelocytes # 0.0 K/mm3 04/25/22 09:15 Blast Cells # 0.0 K/mm3 04/25/22 09:15 WBC Morphology Not Reportable 04/25/22 09:15 Hypersegmented Neuts Not Reportable 04/25/22 09:15 Hyposegmented Neuts Not Reportable 04/25/22 09:15 Hypogranular Neuts Not Reportable 04/25/22 09:15 Smudge Cells Not Reportable 04/25/22 09:15 Toxic Granulation Not Reportable 04/25/22 09:15 Toxic Vacuolation Not Reportable 04/25/22 09:15 Dohle Bodies Not Reportable 04/25/22 09:15 Pelger-Huet Anomaly Not Reportable 04/25/22 09:15 Jose Luis Rods Not Reportable 04/25/22 09:15 Platelet Estimate Consistent w auto 04/25/22 09:15 Clumped Platelets Not Reportable 04/25/22 09:15 Plt Clumps, EDTA Not Reportable 04/25/22 09:15 Large Platelets Not Reportable 04/25/22 09:15 Giant Platelets Not Reportable 04/25/22 09:15 Platelet Satelliting Not Reportable 04/25/22 09:15 Plt Morphology Comment Not Reportable 04/25/22 09:15 RBC Morphology Normal 04/25/22 09:15 Dimorphic RBCs Not Reportable 04/25/22 09:15 Polychromasia Not Reportable 04/25/22 09:15 Hypochromasia Not Reportable 04/25/22 09:15 Poikilocytosis Not Reportable 04/25/22 09:15 Anisocytosis Not Reportable 04/25/22 09:15 Microcytosis Not Reportable 04/25/22 09:15 Macrocytosis Not Reportable 04/25/22 09:15 Spherocytes Not Reportable 04/25/22 09:15 Pappenheimer Bodies Not Reportable 04/25/22 09:15 Sickle Cells Not Reportable 04/25/22 09:15 Target Cells Not Reportable 04/25/22 09:15 Tear Drop Cells Not Reportable 04/25/22 09:15 Ovalocytes Not Reportable 04/25/22 09:15 Helmet Cells Not Reportable 04/25/22 09:15 Harris-Acme Bodies Not Reportable 04/25/22 09:15 [place] Rings Not Reportable 04/25/22 09:15 Birney Cells Not Reportable 04/25/22 09:15 Bite Cells Not Reportable 04/25/22 09:15 Crenated Cell Not Reportable 04/25/22 09:15 Elliptocytes Not Reportable 04/25/22 09:15 Acanthocytes (Spur) Not Reportable 04/25/22 09:15 Rouleaux Not Reportable 04/25/22 09:15 Hemoglobin C Crystals Not Reportable 04/25/22 09:15 Schistocytes Not Reportable 04/25/22 09:15 Malaria parasites Not Reportable 04/25/22 09:15 Demarco Bodies Not Reportable 04/25/22 09:15 Hem Pathologist Commnt No 04/25/22 09:15 Sodium 139 mmol/L (137-145) 04/26/22 06:05 Potassium 3.8 mmol/L (3.6-5.0) 04/26/22 06:05 Chloride 104.3 mmol/L (98-107) 04/26/22 06:05 Carbon Dioxide 22 mmol/L (22-30) 04/26/22 06:05 Anion Gap 17 mmol/L 04/26/22 06:05 BUN 17 mg/dL (9-20) 04/26/22 06:05 Creatinine 1.1 mg/dL (0.8-1.3) 04/26/22 06:05 Estimated GFR > 60 ml/min 04/26/22 06:05 BUN/Creatinine Ratio 15 % 04/26/22 06:05 Glucose 97 mg/dL (75-100) 04/26/22 06:05 Lactic Acid 1.40 mmol/L (0.7-2.0) 04/25/22 11:29 Calcium 8.5 mg/dL (8.4-10.2) 04/26/22 06:05 Total Bilirubin 0.70 mg/dL (0.1-1.2) 04/25/22 09:15 Direct Bilirubin < 0.2 mg/dL (0-0.2) 04/25/22 09:15 Indirect Bilirubin 0.5 mg/dL 04/25/22 09:15 AST 21 units/L (5-40) 04/25/22 09:15 ALT 22 units/L (7-56) 04/25/22 09:15 Alkaline Phosphatase 69 units/L (35-129) 04/25/22 09:15 Total Protein 7.8 g/dL (6.3-8.2) 04/25/22 09:15 Albumin 4.7 g/dL (3.9-5) 04/25/22 09:15 Albumin/Globulin Ratio 1.5 % 04/25/22 09:15 Lipase 13 units/L (13-60) 04/25/22 09:15 Urine Color Yellow (Yellow) 04/25/22 Unknown Urine Turbidity Slightly-cloudy (Clear) 04/25/22 Unknown Urine pH 5.0 (5.0-7.0) 04/25/22 Unknown Ur Specific [place] 1.029 (1.003-1.030) 04/25/22 Unknown Urine Protein 30 mg/dl mg/dL (Negative) 04/25/22 Unknown Urine Glucose (UA) Neg mg/dL (Negative) 04/25/22 Unknown Urine Ketones 80 mg/dL (Negative) 04/25/22 Unknown Urine Blood Neg (Negative) 04/25/22 Unknown Urine Nitrite Neg (Negative) 04/25/22 Unknown Urine Bilirubin Neg (Negative) 04/25/22 Unknown Urine Urobilinogen < 2.0 mg/dL (<2.0) 04/25/22 Unknown Ur Leukocyte Esterase Neg (Negative) 04/25/22 Unknown Urine WBC (Auto) 1.0 /HPF (0.0-6.0) 04/25/22 Unknown Urine RBC (Auto) 1.0 /HPF (0.0-6.0) 04/25/22 Unknown U Epithel Cells (Auto) 1.0 /HPF (0-13.0) 04/25/22 Unknown Urine Mucus 3+ /HPF 04/25/22 Unknown Microbiology: Microbiology 04/25/22 11:29 Peripheral/Venous Blood Culture - Preliminary NO GROWTH AFTER 48 HOURS 04/25/22 11:29 Peripheral/Venous Blood Culture - Preliminary NO GROWTH AFTER 48 HOURS Sotelo/IV: Voiding Method Toilet Active Medications - Current Medications Current Medications: Generic Name Dose Route Start Last Admin Trade Name Freq PRN Reason Stop Dose Admin Acetaminophen 650 mg 04/25/22 18:33 Acetaminophen 325 Mg Tab PO Q4H PRN Pain MILD(1-3)/Fever >100.5/RIDLEY Famotidine 20 mg 04/25/22 22:00 04/27/22 09:49 Famotidine 20 Mg/2 Ml Inj IV 20 mg BID JADIEL Administration Piperacillin Sod/Tazobactam Sod 4.5 gm in 100 mls @ 200 mls/hr 04/25/22 20:00 04/27/22 17:50 Zosyn/Ns 4.5gm/100ml IV 200 mls/hr Q8H JADIEL Administration Protocol Sodium Chloride 1,000 mls @ 75 mls/hr 04/25/22 18:45 04/27/22 17:58 Nacl 0.9% 1000 Ml IV 75 mls/hr DIRECT JADIEL Administration Metoclopramide HCl 10 mg 04/25/22 18:33 Metoclopramide 10 Mg/2 Ml Inj IV Q6H PRN Nausea And Vomiting Ondansetron HCl 4 mg 04/25/22 18:36 Ondansetron 4 Mg/2 Ml Inj IV Q3H PRN Nausea And Vomiting Oxycodone/Acetaminophen 1 tab 04/27/22 09:50 04/27/22 17:51 Oxycodone /Acetaminophen 5-325mg Tab PO 1 tab Q6H PRN Administration Pain, Moderate (4-6) Promethazine HCl 25 mg 04/25/22 18:33 Promethazine 25 Mg Rect Supp [place] Q6H PRN N/V IF NPO AND NO IV ACCESS Sodium Chloride 10 ml 04/25/22 22:00 04/27/22 09:44 Sodium Chloride 0.9% 10 Ml Flush Syringe IV 10 ml BID JADIEL Administration Sodium Chloride 10 ml 04/25/22 18:33 Sodium Chloride 0.9% 10 Ml Flush Syringe IV PRN PRN LINE FLUSH
[2022-04-28] MEDS: PIPERACIL/TAZOBACTA 4.5/NS 100 4.5 GM/100 ML VIAL IV SCH (07:53)
[2022-04-28] MEDS: FAMOTIDINE 20 MG/2 ML INJ IV SCH (09:28)
--- NOTE | 2022-04-28 09:45 | Progress Note ---
Assessment and Plan 61-year-old male patient with about a days duration of abdominal pain that appears to started periumbilically and then become more prominent in the right hypogastric area. CT scan of the abdomen is consistent with acute cholecystitis. Admitting WBC count is 23,000. PPlan discharge today follow-up via video teleconferencing in 1 week. Subjective Date of service: 04/28/22 Patient Reports: Positive: no new complaints, feels better Narrative: Plan discharge today follow-up via video teleconferencing in 1 week. Objective Vital Signs - 12hr 04/27/22 04/28/22 23:37 03:22 Temperature 97.8 F Pulse Rate 64 Respiratory 17 18 Rate Blood Pressure 146/81 O2 Sat by Pulse 97 98 Oximetry - Labs 04/27/22 05:39 04/26/22 06:05
[2022-04-28 10:00] LABS: Basophils % (Auto) 0.5 % (0.0-1.8); Eosinophils # (Auto) 0.4 K/mm3 (0.0-0.4); Eosinophils % (Auto) 5.1 % (0.0-4.3); Hematocrit 37.1 % (35.5-45.6); Hemoglobin 12.4 gm/dl (11.8-15.2); Lymphocytes # (Auto) 1.2 K/mm3 (1.2-5.4); Lymphocytes % (Auto) 17.1 % (13.4-35.0); Mean Corpuscular HGB Conc 33 % (32-34); Mean Corpuscular Volume 90 fl (84-94); Monocytes # (Auto) 0.9 K/mm3 (0.0-0.8); Monocytes % (Auto) 13.2 % (0.0-7.3); Platelet Count 207 K/mm3 (140-440); Red Blood Count 4.12 M/mm3 (3.65-5.03)
[2022-04-28] MEDS ORDERED: hydrALAZINE 20 MG/1 ML INJ IV NR (13:04)
[2022-04-28 13:29] VITALS: BP 158/100
[2022-04-28] MEDS ORDERED: FAMOTIDINE 20 MG TAB PO SCH (22:00)
== END 2022-04-28 14:21 | disposition home or self-care (01) | DRG 854 ==
LOC: ED 00:35 → 3A 13:28
PROVIDERS: ADMIT Internal Medicine; ATTEND Internal Medicine
PROC: 0DTJ4ZZ Resection of Appendix, Percutaneous Endoscopic Approach (ICD-10-PCS; principal; 2022-04-25)
DX: A41.9 Sepsis, unspecified organism (principal); K35.80 Unspecified acute appendicitis; R65.10 Systemic inflammatory response syndrome (SIRS) of non-infectious origin without acute organ dysfunction; I10 Essential (primary) hypertension; K21.9 Gastro-esophageal reflux disease without esophagitis; J44.9 Chronic obstructive pulmonary disease, unspecified; E86.0 Dehydration; E66.9 Obesity, unspecified; Z68.31 Body mass index [BMI] 31.0-31.9, adult
CPT/HCPCS: 36415; 71046; 74177; 80048; 80076; 81001; 82140; 83690; 85007; 85025; 87040; 88304; G0378; J3490; J7517; J0360; J0692; J1170; J1200; J1650; J2250; J2270; J2405; J2543; J2704; J3010; J7030; J7120; Q9967